=== PATIENT | female | born 1960 | race African-American/Black ===

== ENCOUNTER 2020-01-20 10:03 | Emergency (ER) | payer OTHER ==
--- OUTSIDE RECORDS SUMMARY | 2020-01-20 10:05 | XMS REPORT ---
:1960 [facility] Address [address] [place] [address] Care Team Providers Name Role Phone Unavailable Unavailable Unavailable Payers Payer Name Policy Type Policy Number Effective Date Expiration Date Problems This patient has no known problems. Allergies, Adverse Reactions, Alerts Allergy Allergy Status Severity Reaction(s) Onset Inactive Treating Comments Name Type Date Date Clinician No Known DA Active U 2019-06 Allergies -30 00:00:0 0 No Known DA Active U 2019-01 Allergies - 00:00:0 0 No Known DA Active U 2019-01 Allergies - 00:00:0 0 Medications This patient has no known medications. Results Test Description Test Time Test Comments Text Results Atomic Results Result Comments - XR FLUORO NDL 2019-07-20 20:05:00 Patient Name: CECILIO MERAZ Unit No: [id number] EXAMS: CPT CODE: [id number] XR FLUORO NDL 12138 Fluoroscopically guided injection of the left pes anserinus bursa with steroid and lidocaine COMPARISON: No prior exams available. FINDINGS: After informed consent was obtained a needle was placed in the left pes anserinus bursa with fluoroscopic guidance. Its position was confirmed by obtaining an AP radiograph. Subsequently 2 mL of Kenalog 40 mg per cc and 2 mL of 1 percent lidocaine was injected. No immediate complications were encountered. 11 seconds of fluoroscopy time was utilized. IMPRESSION: Technically successful steroid injection of the left pes anserinus bursa at 2005 Reported and signed by: Zoran Delgado M.D. CC: Andres Kerns Technologist: Harmony Lowry RT.(R) Transcribed D/ (2004) [facility] NAME: CECILIO MERAZ [address] [facility] PHYS: Andres Hugo : 1960 AGE: 58 SEX: F [place] [address] LOC: Y.RAD PHONE #: [phone] EXAM DATE: 07/17/2019 STATUS: DEP CLI FAX #: [phone] RAD #: D/C DT PAGE 1 Signed Report Patient Name: CECILIO MERAZ Unit No: [id number] EXAMS: CPT CODE: [id number] XR FLUORO NDL 52083 <Continued> Orig Print D/T: S: 07/20/2019 (2007) [facility] NAME: CECILIO MERAZ [address] [facility] PHYS: Andres Hugo : 1960 AGE: 58 SEX: F [place] [address] LOC: Y.RAD PHONE #: [phone] EXAM DATE: 07/17/2019 STATUS: DEP CLI FAX #: [phone] RAD #: D/C DT PAGE 2 Signed Report HGB HCT 2019-02-06 06:03:00 Test Item Value Reference Range Comments HEMOGLOBIN (test code=HGB) 10.2 g/dL 12-16 HEMATOCRIT (test code=HCT) 31.5 % 37-47 BASIC METABOLIC [id number] 06:40:00 Test Item Value Reference Range Comments SODIUM (test code=NA) 142 mmol/L 136-145 POTASSIUM (test code=K) 4.5 mmol/L 3.5-5.1 CHLORIDE (test code=CL) 107.0 mmol/L 98-107 CARBON DIOXIDE (test 24.0 mmol/L 21-32 code=CO2) GLUCOSE (test code=GLU) 128 mg/dL 70-110 BLOOD UREA NITROGEN (test 18 mg/dL 7-18 code=BUN) GLOMERULAR FILTRATION RATE 100.1 >60 Unit of measure: (test code=GFR) mL/min/1.73 [id number] Range:Healthy Adults >90 mL/min/1.73 m2 For Chronic Kidney Disease: Stage II Mild Decrease in GFR 60-90 Stage III Moderate Decrease in GFR 30-59 Stage IV Severe Decrease in GFR 15-29 Stage V Kidney Failure <15 CREATININE (test code=CREAT) 0.72 mg/dL 0.55-1.30 CALCIUM (test code=CA) 8.5 mg/dL 8.2-10.1 HGB [id number] 05:45:00 Test Item Value Reference Range Comments HEMOGLOBIN (test code=HGB) 11.5 g/dL 12-16 HEMATOCRIT (test code=HCT) 35.0 % 37-47 AB HIV 17:20:00 Test Item Value Reference Range Comments AB HIV 1 (test code=HIV1AB) NONREACTIVE NONREACTIVE DONE AT: [address] [id number] by [employer] G[employer]aur 4th Gen HIV Ag/Ab Combo Screen AB HIV 1 17:19:00 Test Item Value Reference Range Comments AB HIV 1 2 (test NONREACTIVE NONREACTIVE Done by [employer] G[employer]aur 4th code=IHH10MC) Gen HIV Ag/Ab Combo Screen COMPREHENSIVE METABOLIC [id number] 13:28:00 Test Item Value Reference Range Comments SODIUM (test code=NA) 142 mmol/L 136-145 POTASSIUM (test code=K) 4.2 mmol/L 3.5-5.1 CHLORIDE (test code=CL) 105.0 mmol/L 98-107 CARBON DIOXIDE (test code=CO2) 26.8 mmol/L 21-32 GLUCOSE (test code=GLU) 86 mg/dL 70-110 BLOOD UREA NITROGEN (test 15 mg/dL 7-18 code=BUN) GLOMERULAR FILTRATION RATE 78.4 >60 Unit of measure: (test code=GFR) mL/min/1.73 [id number] Range:Healthy Adults >90 mL/min/1.73 m2 For Chronic Kidney Disease: Stage II Mild Decrease in GFR 60-90 Stage III Moderate Decrease in GFR 30-59 Stage IV Severe Decrease in GFR 15-29 Stage V Kidney Failure <15 CREATININE (test code=CREAT) 0.89 mg/dL 0.55-1.30 TOTAL PROTEIN (test code=PROT) 7.7 g/dL 6.4-8.2 ALBUMIN (test code=ALB) 4.0 g/dL 3.4-5.0 GLOBULIN (test code=GLOB) 3.7 g/dL 2.2-4.2 ALBUMIN/GLOBULIN RATIO (test 1.1 0.7-2.0 code=A/G) CALCIUM (test code=CA) 9.0 mg/dL 8.2-10.1 BILIRUBIN TOTAL (test 0.58 mg/dL 0.2-1.00 code=BILT) SGOT/AST (test code=AST) 23.0 U/L 15-37 SGPT/ALT (test code=ALT) 20.0 U/L 12-78 Please note new normal range. ALKALINE PHOSPHATASE TOTAL 128 U/L 46-116 (test code=ALKP) URINALYSIS [id number] 11:34:00 Test Item Value Reference Range Comments UA COLOR (test code=COLU) YELLOW YELLOW UA APPEARANCE (test code=APPU) CLEAR CLEAR UA GLUCOSE DIPSTICK (test code=DGLUU) NEGATIVE NEGATIVE UA BILIRUBIN DIPSTICK (test code=BILU) NEGATIVE NEGATIVE UA KETONE DIPSTICK (test code=KETU) NEGATIVE mg/dL NEG UA SPECIFIC GRAVITY (test code=SGU) 1.010 1.003-1.035 UA BLOOD DIPSTICK (test code=AGATA) NEGATIVE NEGATIVE UA PH DIPSTICK (test code=LEONARD) 7.0 >6.5 UA PROTEIN DIPSTICK (test code=PROU) NEGATIVE mg/dL NEG UA UROBILINIOGEN DIPSTICK (test code=URO) 2.0 mg/dL NORM UA NITRITE DIPSTICK (test code=JHONNY) NEGATIVE NEG UA LEUKOCYTE ESTERASE DIPSTICK (test 2+ NEGATIVE code=LEUU) UA WBC (test code=WBCU) 1-2 /HPF 0-2 UA RBC (test code=RBCU) 0-2 /HPF 0-2 UA EPITHELIAL CELLS (test code=EPIU) 2-5 /HPF 0-2 UA BACTERIA (test code=BACU) MODERATE /HPF NONE PROTHROMBIN [id number] 11:12:00 Test Item Value Reference Range Comments PROTHROMBIN TIME PATIENT 12.5 secs 10.1-12.5 (test code=PTP) INTERNATIONAL NORMAL RATIO 1.11 <2.0 RECOMMENDED THERAPEUTIC RANGE (test code=INR) FOR ORAL ANTICOAGULANTTREATMENT: CONDITION INRProphylaxis of venous thrombosis in 2.0 - 3.0 high-risk medical or surgical patientsTreatment of venous thrombosis 2.0 - 3.0Prevention of embolism 2.0 - 3.0Prevention of recurrent embolism, or 3.0 - 4.5 patients with mechanical prosthetic intravascular valves IS PATIENT ON ANTICOAGULANTS ? YLIST ANTICOAGULANT/ANTI PLT MEDICATION : AspirinHas Lab been notified if Patient is on Heparin Drip? NOTHROMBOPLASTIN TIME [id number] 11:12:00 Test Item Value Reference Range Comments PTT ACTIVATED (test code=APTT) 30.6 secs 24.9-37.0 IS PATIENT ON ANTICOAGULANTS ? YLIST ANTICOAGULANT/ANTI PLT MEDICATION : AspirinHas Lab been notified if Patient is on Heparin Drip? NOCBC W/AUTO [id number] 10:58:00 Test Item Value Reference Range Comments WHITE BLOOD CELL (test code=WBC) 5.4 K/mm3 5.8-11.0 RED BLOOD CELL (test code=RBC) 4.72 M/mm3 4.2-5.4 HEMOGLOBIN (test code=HGB) 13.8 g/dL 12-16 HEMATOCRIT (test code=HCT) 42.2 % 37-47 MEAN CELL VOLUME (test code=MCV) 89 fL 80-98 MEAN CELL HGB (test code=MCH) 29.2 pg 27-34 MEAN CELL HGB CONCENTRATION (test code=MCHC) 32.7 g/dL 30.8-34.1 RED CELL DISTRIBUTION WIDTH (test code=RDW) 13.4 % 11-16 PLT (test code=PLT) 274 K/mm3 130-400 MEAN PLATELET VOLUME (test code=MPV) 9.9 fL 8.9-12.1 NEUTROPHIL % (test code=NT%) 64.0 % 45-70 LYMPHOCYTE % (test code=LY%) 24.4 % 20-40 MONOCYTE % (test code=MO%) 9.8 % 3-10 EOSINOPHIL % (test code=EO%) 0.9 % 1-5 BASOPHIL % (test code=BA%) 0.7 % 0.0-1.1 NEUTROPHIL # (test code=NT#) 3.46 K/mm3 2.00-7.50 LYMPHOCYTE # (test code=LY#) 1.32 K/mm3 1.50-4.00 MONOCYTE # (test code=MO#) 0.53 K/mm3 0.2-0.8 EOSINOPHIL # (test code=EO#) 0.05 K/mm3 0.04-0.4 BASOPHIL # (test code=BA#) 0.04 K/mm3 0.02-0.10 MANUAL DIFF REQUIRED (test code=MDIFF) NO MANUAL DIFF NUCLEATED RED BLOOD CELL (test code=NRBC) 0 % 0-0
[2020-01-20] MEDS ORDERED: DIAZEPAM 5 MG TABLET ONE (12:57)
--- NOTE | 2020-01-20 13:43 | RAD REPORT ---
EXAM DESCRIPTION: RAD - Hip Left 2 View - 01/20/2020 1:36 pm CLINICAL HISTORY: PAIN COMPARISON: No comparisons FINDINGS: Mild osteoarthritic changes affect the left hip. No fracture, dislocation or AVN.
--- NOTE | 2020-01-20 13:44 | RAD REPORT ---
EXAM DESCRIPTION: RAD - Lumbar Spine 3 Views - 01/20/2020 1:36 pm CLINICAL HISTORY: PAIN Radiculopathy COMPARISON: Lumbar Spine 3 Views dated 05/29/2019; Lumbar Spine 3 Views dated 08/01/2018; SPINE LUMBAR W OBLIQUE dated 07/23/2012; LUMBAR SPINE 3 VIEWS dated 04/01/2008 FINDINGS: Vertebral body heights appear maintained. No compression fracture noted. Multilevel degene rative changes are present throughout the lower lumbar levels, with disc thinning, posterior osteophy te and vacuum disc degeneration seen at L3-4 and L5-S1. Mild disc thinning with posterior osteophyte and facet hypertrophy is present at L4-5. Mild degenerative dextroscoliosis. Tiny calcifications are present projecting over both kidneys, like ly nephrolithiasis. IMPRESSION: Mild to moderate lower lumbar spondylosis. Bilateral nephrolithiasis.
--- NOTE | 2020-01-20 13:54 | ER ---
Nurse's Notes [facility] Name: Barbie Treadwell Age: 59 yrs Sex: Female : 1960 Arrival Date: 01/20/2020 Time: 10:05 Bed 19 Private MD: Justice Rene C Diagnosis: Spondylosis, unspecified;Radiculopathy, lumbosacral region;Osteoarthritis of hip, unspecified Presentation: 01/19 10:20 Chief complaint: Patient states: L upper thigh pain when walking and unable to lift L ca1 leg. Feels anant and tightening. Had L knee surgery a year ago. Coronavirus screen: The patient has NOT traveled to a country currently being monitored by the CDC within the last 14 days. The patient has NOT had contact with any known and/or suspected case of coronavirus. Ebola Screen: Patient negative for fever greater than or equal to 101.5 degrees Fahrenheit, and additional compatible Ebola Virus Disease symptoms Patient denies exposure to infectious person. Patient denies travel to an Ebola-affected area in the 21 days before illness onset. No symptoms or risks identified at this time. Initial Sepsis Screen: Does the patient meet any 2 criteria? No. Patient's initial sepsis screen is negative. Does the patient have a suspected source of infection? No. Patient's initial sepsis screen is negative. Risk Assessment: Do you want to hurt yourself or someone else? Patient reports no desire to harm self or others. Onset of symptoms was January 20, 2020. 10:20 Method Of Arrival: Wheelchair ca1 10:20 Acuity: GEORGE 3 ca1 Triage Assessment: 10:26 General: Appears in no apparent distress. comfortable, Behavior is calm, cooperative, ca1 appropriate for age. Pain: Complains of pain in left leg. Historical: - Allergies: 10:26 No Known Allergies; ca1 - Home Meds: 10:26 levothyroxine 50 mcg tab 1 tab once daily [Active]; levothyroxine 200 mcg tab 1 tab ca1 once daily [Active]; carvedilol 12.5 mg oral tab 1 tab 2 times per day [Active]; gabapentin 300 mg oral cap 2 caps daily [Active]; Xarelto 20 mg oral tab 1 tab once daily [Active]; - PMHx: 10:26 Pacemaker; Thyroid problem; Hypertension; Atrial Fib; ca1 - PSHx: 10:26 Knee surgery; Hysterectomy; ca1 - Immunization history:: Adult Immunizations up to date, Flu vaccine is not up to date. - Social history:: Smoking status: Patient denies any tobacco usage or history of. Screenin:30 Abuse screen: Denies threats or abuse. Denies injuries from another. Nutritional jl7 screening: No deficits noted. Tuberculosis screening: No symptoms or risk factors identified. Fall Risk No fall in past 12 months (0 pts). Secondary diagnosis (15 points) impaired mobility, No IV (0 pts). Ambulatory Aid- Crutches/Cane/Walker (15 pts). Gait- Weak (10 pts.). Assessment: 12:30 General: Appears in no apparent distress. uncomfortable, Behavior is calm, cooperative, jl7 appropriate for age. Pain: Complains of pain in left upper thigh Pain currently is 8 out of 10 on a pain scale. Neuro: Level of Consciousness is awake, alert, obeys commands, Oriented to person, place, time, situation. Cardiovascular: Patient's skin is warm and dry. Respiratory: Airway is patent Respiratory effort is even, unlabored, Respiratory pattern is regular, symmetrical. Derm: Skin is pink, warm \T\ dry. 13:30 Reassessment: Patient appears in no apparent distress at this time. Patient and/or jl7 family updated on plan of care and expected duration. Pain level reassessed. Patient is alert, oriented x 3, equal unlabored respirations, skin warm/dry/pink. Vital Signs: 10:20 BP 119 / 67; Pulse 60; Resp 17 S; Temp 97.2(TE); Pulse Ox 100% on R/A; Weight 136.08 kg ca1 (R); Height 5 ft. 6 in. (167.64 cm) (R); 10:20 Body Mass Index 48.42 (136.08 kg, 167.64 cm) ca1 ED Course: 10:05 Patient arrived in ED. rg4 10:05 Justice Rene MD is Private Physician. rg4 10:22 Triage completed. ca1 10:26 Arm band placed on right wrist. ca1 10:32 Mio Owens RN is Primary Nurse. jl7 12:30 Patient has correct armband on for positive identification. Bed in low position. Call jl7 light in reach. Side rails up X 1. 12:31 Delilah, Funmilayo, CALCULATING MACHINE OPERATOR-C is [facility]. snw 12:31 Mikael Lauren MD is Attending Physician. snw 13:36 Hip Left 2 View XRAY In Process Unspecified. EDMS 13:36 Lumbar Spine (3 Views) XRAY In Process Unspecified. EDMS 13:52 Justice Rene MD is Referral Physician. snw 13:59 EKG done, by nuclear medical tech. reviewed by Funmilayo VENTURA. at1 14:19 No provider procedures requiring assistance completed. Patient did not have IV access jl7 during this emergency room visit. Administered Medications: 12:55 Drug: Valium 10 mg Route: PO; jl7 13:30 Follow up: Response: No adverse reaction jl7 Outcome: 13:53 Discharge ordered by MD. snw 14:19 Discharged to home ambulatory, with family. jl7 14:19 Condition: stable 14:19 Discharge instructions given to patient, family, Instructed on discharge instructions, follow up and referral plans. medication usage, Demonstrated understanding of instructions, follow-up care, medications, Prescriptions given X 2. 14:20 Patient left the ED. jl7 Signatures: Dispatcher [employer] EDHI Funmilayo Mazariegos FNP-C CALCULATING MACHINE OPERATOR-Csnw Janine Alvarez, event marketing assistant EKG Tat1 Na Pate rg4 Mio Owens, RN RN jl7 Fátima Guerra RN RN ca1 Corrections: (The following items were deleted from the chart) 13:10 12:10 General: Appears in no apparent distress. uncomfortable, Behavior is calm, jl7 cooperative, appropriate for age, jl7 13:10 12:10 Pain: Complains of pain in left upper thigh Pain currently is 8 out of 10 on a jl7 pain scale. jl7 13:10 12:10 Neuro: Level of Consciousness is awake, alert, obeys commands, Oriented to jl7 person, place, time, situation, jl7 13:10 12:10 Cardiovascular: Patient's skin is warm and dry. jl7 jl7 13:10 12:10 Respiratory: Airway is patent Respiratory effort is even, unlabored, Respiratory jl7 pattern is regular, symmetrical, jl7 13:10 12:10 Derm: Skin is pink, warm \T\ dry. jl7 jl7
--- NOTE | 2020-01-20 13:54 | EDPHYS ---
Physician Documentation [facility] Name: Barbie Treadwell Age: 59 yrs Sex: Female : 1960 Arrival Date: 01/20/2020 Time: 10:05 Bed 19 Private MD: Justice Rene C ED Physician Mikael Lauren HPI: 01/19 12:48 This 59 yrs old Black Female presents to ER via Wheelchair with complaints of Leg Pain. snw 12:48 The patient presents with decreased range of motion, pain. The complaints affect the snw left hip, left upper thigh and left quadriceps. Context: The problem was sustained at home, resulted from an unknown cause, the patient can partially bear weight, the patient is able to ambulate, Problem is a result from a previous injury: left knee surgery painful to lift left thigh. Onset: The symptoms/episode began/occurred suddenly, 3 day(s) ago, and became persistent. Associated signs and symptoms: The patient has no apparent associated signs or symptoms. Severity of symptoms: At their worst the symptoms were moderate. The patient has not experienced similar symptoms in the past. It is unknown whether or not the patient has recently seen a physician. Historical: - Allergies: 10:26 No Known Allergies; ca1 - Home Meds: 10:26 levothyroxine 50 mcg tab 1 tab once daily [Active]; levothyroxine 200 mcg tab 1 tab ca1 once daily [Active]; carvedilol 12.5 mg oral tab 1 tab 2 times per day [Active]; gabapentin 300 mg oral cap 2 caps daily [Active]; Xarelto 20 mg oral tab 1 tab once daily [Active]; - PMHx: 10:26 Pacemaker; Thyroid problem; Hypertension; Atrial Fib; ca1 - PSHx: 10:26 Knee surgery; Hysterectomy; ca1 - Immunization history:: Adult Immunizations up to date, Flu vaccine is not up to date. - Social history:: Smoking status: Patient denies any tobacco usage or history of. ROS: 12:47 Constitutional: Negative for fever, chills, and weight loss, Eyes: Negative for injury, snw pain, redness, and discharge, ENT: Negative for injury, pain, and discharge, Neck: Negative for injury, pain, and swelling, Cardiovascular: Negative for chest pain, palpitations, and edema, Respiratory: Negative for shortness of breath, cough, wheezing, and pleuritic chest pain, Abdomen/GI: Negative for abdominal pain, nausea, vomiting, diarrhea, and constipation, Back: Negative for injury and pain, : Negative for injury, bleeding, discharge, and swelling, Skin: Negative for injury, rash, and discoloration, Neuro: Negative for headache, weakness, numbness, tingling, and seizure, Psych: Negative for depression, anxiety, suicide ideation, homicidal ideation, and hallucinations. 12:47 MS/extremity: Positive for decreased range of motion, pain, of the left hip and anterior left thigh. Exam: 12:45 Constitutional: This is a well developed, well nourished patient who is awake, alert, snw and in no acute distress. Head/Face: Normocephalic, atraumatic. Eyes: Pupils equal round and reactive to light, extra-ocular motions intact. Lids and lashes normal. Conjunctiva and sclera are non-icteric and not injected. Cornea within normal limits. Periorbital areas with no swelling, redness, or edema. ENT: Nares patent. No nasal discharge, no septal abnormalities noted. Tympanic membranes are normal and external auditory canals are clear. Oropharynx with no redness, swelling, or masses, exudates, or evidence of obstruction, uvula midline. Mucous membranes moist. Neck: Trachea midline, no thyromegaly or masses palpated, and no cervical lymphadenopathy. Supple, full range of motion without nuchal rigidity, or vertebral point tenderness. No Meningismus. Chest/axilla: Normal chest wall appearance and motion. Nontender with no deformity. No lesions are appreciated. Cardiovascular: Regular rate and rhythm with a normal S1 and S2. No gallops, murmurs, or rubs. Normal PMI, no JVD. No pulse deficits. Respiratory: Lungs have equal breath sounds bilaterally, clear to auscultation and percussion. No rales, rhonchi or wheezes noted. No increased work of breathing, no retractions or nasal flaring. Abdomen/GI: Soft, non-tender, with normal bowel sounds. No distension or tympany. No guarding or rebound. No evidence of tenderness throughout. Skin: Warm, dry with normal turgor. Normal color with no rashes, no lesions, and no evidence of cellulitis. Neuro: Awake and alert, GCS 15, oriented to person, place, time, and situation. Cranial nerves II-XII grossly intact. Motor strength 5/5 in all extremities. Sensory grossly intact. Cerebellar exam normal. Normal gait. Psych: Awake, alert, with orientation to person, place and time. Behavior, mood, and affect are within normal limits. 12:45 Back: pain, that is moderate, of the left anterior thigh, ROM is painful, with flexion, with extension, normal spinal alignment noted, CVA tenderness, is absent, vertebral tenderness, is not appreciated, muscle spasm, is not present. 12:45 Musculoskeletal/extremity: Extremities: grossly normal except: noted in the left leg: decreased ROM, tenderness, anterior left thigh, pain on lifting leg, Circulation is intact in all extremities. Sensation intact. 13:54 ECG was reviewed by the Attending Physician. atrial paced rhythm snw Vital Signs: 10:20 BP 119 / 67; Pulse 60; Resp 17 S; Temp 97.2(TE); Pulse Ox 100% on R/A; Weight 136.08 kg ca1 (R); Height 5 ft. 6 in. (167.64 cm) (R); 10:20 Body Mass Index 48.42 (136.08 kg, 167.64 cm) ca1 MDM: 12:33 Patient medically screened. snw 12:49 Data reviewed: vital signs, nurses notes. Data interpreted: Pulse oximetry: on room air snw is 100 %. Interpretation: normal. ED course: + obesity, no MRI as pt has pacemaker. 01/19 12:32 Order name: Hip Left 2 View XRAY; Complete Time: 14:07 snw 01/19 12:44 Order name: Lumbar Spine (3 Views) XRAY; Complete Time: 14:07 snw 01/19 12:44 Order name: EKG; Complete Time: 12:44 snw 01/19 12:44 Order name: EKG - Nurse/Tech; Complete Time: 13:56 snw Administered Medications: 12:55 Drug: Valium 10 mg Route: PO; jl7 13:30 Follow up: Response: No adverse reaction jl7 Disposition: 16:20 Co-signature as Attending Physician, Mikael Lauren MD I agree with the assessment and kdr plan of care. Disposition: 01/20/20 13:53 Discharged to Home. Impression: Spondylosis, unspecified, Radiculopathy, lumbosacral region, Osteoarthritis of hip, unspecified. - Condition is Stable. - Discharge Instructions: Arthritis, Lumbosacral Radiculopathy, Neuropathic Pain, Heat Therapy, Radicular Pain. - Prescriptions for Mobic 7.5 mg Oral Tablet - take 1 tablet by ORAL route once daily take with food; 20 tablet. orphenadrine citrate 100 mg Oral Tablet Sustained Release - take 1 tablet by ORAL route 2 times per day As needed; 20 tablet. - Work release form, Family Work Release, Medication Reconciliation Form, Thank You Letter, Antibiotic Education, Prescription Opioid Use form. - Follow up: Emergency Department; When: As needed; Reason: Worsening of condition. Follow up: Justice Rene MD; When: 2 - 3 days; Reason: Recheck today's complaints, Continuance of care, Re-evaluation by your physician. Signatures: Dispatcher [employer] EDMikael Isbell MD MD [facility] Funmilayo Mazariegos, CONTROLLER INSTRUCTOR-C CONTROLLER INSTRUCTOR-Csnw Mio Owens RN RN jl7 Fátima Guerra RN RN ca1 Corrections: (The following items were deleted from the chart) 13:53 13:53 01/20/2020 13:53 Discharged to Home. Impression: Spondylosis, unspecified; snw Radiculopathy, lumbosacral region. Condition is Stable. Forms are Medication Reconciliation Form, Thank You Letter, Antibiotic Education, Prescription Opioid Use. Follow up: Emergency Department; When: As needed; Reason: Worsening of condition. Follow up: A Rene; When: 2 - 3 days; Reason: Recheck today's complaints, Continuance of care, Re-evaluation by your physician. snw 14:20 13:53 01/20/2020 13:53 Discharged to Home. Impression: Spondylosis, unspecified; jl7 Radiculopathy, lumbosacral region; Osteoarthritis of hip, unspecified. Condition is Stable. Forms are Medication Reconciliation Form, Thank You Letter, Antibiotic Education, Prescription Opioid Use. Follow up: Emergency Department; When: As needed; Reason: Worsening of condition. Follow up: A Rene; When: 2 - 3 days; Reason: Recheck today's complaints, Continuance of care, Re-evaluation by your physician. snw
[2020-01-20 14:38] VITALS: BP 119/67; TEMP 97.2; O2SAT 100
--- NOTE | 2020-01-20 15:48 | EKG ---
Test Date: 2020-01-20 Test Time: 13:53:35 Acid Wash Operator: RUBY MEASUREMENT RESULTS: Intervals: Rate: 60 OK: 192 QRSD: 84 QT: 402 QTc: 402 Curran: P: 39 OK: 192 QRS: 3 T: 17 INTERPRETIVE STATEMENTS: Electronic atrial pacemaker Abnormal ECG No previous ECG available for comparison Electronically Signed On 01-20-20 15:47:55 RECREATIONAL PROGRAMS DIRECTOR by Rodrick Magaña
== END 2020-01-20 14:20 | disposition home or self-care (01) ==
LOC: ER 10:03
DX: M54.17 Radiculopathy, lumbosacral region (principal); M16.10 Unilateral primary osteoarthritis, unspecified hip; M47.9 Spondylosis, unspecified; E07.9 Disorder of thyroid, unspecified; Z95.0 Presence of cardiac pacemaker; I10 Essential (primary) hypertension; I48.91 Unspecified atrial fibrillation
CPT/HCPCS: 72100; 93005